=== PATIENT | female | born 1985 | race Caucasian/White ===

== ENCOUNTER 2022-06-30 11:18 | Emergency (ER) | payer MEDICAID ==
[~2022-06-30] VITALS: Ht 157 cm; Wt 48.0 kg
[~2022-06-30 11:18] MED LIST: BUTA1TAB46 PO; CYCL10TA9 PO; MULT-608 PO; NAPR-243 PO; ONDA-42 SL; ORPH100T PO; [UNRECOGNIZED DRUG - CODE] PO
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
[2022-06-30 13:03] VITALS: BP 125/92
== END 2022-06-30 13:03 | disposition home or self-care (01) ==
LOC: EDUNIT# 11:18 → ER 11:22
DX: Z00.00 Encounter for general adult medical examination without abnormal findings (principal); T43.221A Poisoning by selective serotonin reuptake inhibitors, accidental (unintentional), initial encounter; F31.9 Bipolar disorder, unspecified; G89.29 Other chronic pain; R10.31 Right lower quadrant pain; F17.210 Nicotine dependence, cigarettes, uncomplicated; Z79.83 Long term (current) use of bisphosphonates
CPT/HCPCS: 99281

== ENCOUNTER 2022-06-30 20:29 | Emergency (ER) | payer MEDICAID ==
[~2022-06-30] VITALS: Ht 165 cm; Wt 63.0 kg
[2022-06-30 21:33] LABS: CLARITY,URINE CLEAR; COLOR,URINE ORANGE; GLUCOSE, URINE (UA) NEGATIVE (NEGATIVE); KETONES,URINE 3+ (NEGATIVE); LEUKOCYTE ESTERASE ,URINE NEGATIVE (NEGATIVE); NITRITE,URINE NEGATIVE (NEGATIVE); PH,URINE 5.5 (5-9); PROTEIN,URINE 1+ (NEGATIVE)
[2022-06-30 21:43] LABS: BACTERIA,URINE LARGE /HPF; SQUAMOUS EPITHELIAL CELL,UR 25-50 /HPF
[2022-06-30 21:44] LABS: BILIRUBIN,URINE NEGATIVE (NEGATIVE); CALCIUM OXALATE CRYSTALS,UR FEW /LPF
[2022-06-30 21:47] LABS: BASOPHILS % (AUTO) 1 % (0-10); EOSINOPHILS # (AUTO) 0.1 10^3/uL (0.0-0.3); EOSINOPHILS % (AUTO) 2 % (0-10); HEMATOCRIT 43 % (35-52); HEMOGLOBIN 14.2 g/dL (11.5-16.0); LYMPHOCYTES # (AUTO) 1.9 10^3/uL (1.0-4.0); LYMPHOCYTES % (AUTO) 25 % (12-44); MEAN CORPUSCULAR HEMOGLOBIN 28 pg (25-34); MEAN CORPUSCULAR HGB CONC 33 g/dL (32-36); MEAN CORPUSCULAR VOLUME 84 fL (80-99); MEAN PLATELET VOLUME 9.5 fL (9.0-12.2); MONOCYTES # (AUTO) 0.6 10^3/uL (0.0-1.0); MONOCYTES % (AUTO) 8 % (0-12); NEUTROPHILS # (AUTO) 4.8 10^3/uL (1.8-7.8); NEUTROPHILS % (AUTO) 65 % (42-75); PLATELET COUNT 293 10^3/uL (130-400); WHITE BLOOD COUNT 7.5 10^3/uL (4.3-11.0)
[2022-06-30 21:50] LABS: AMPHETAMINE SCREEN, URINE NEGATIVE (NEGATIVE); BARBITURATE SCREEN URINE NEGATIVE (NEGATIVE); BENZODIAZEPINES SCREEN URINE POSITIVE (NEGATIVE); CANNABINOID SCREEN, URINE POSITIVE (NEGATIVE); COCAINE SCREEN URINE NEGATIVE (NEGATIVE); METHADONE STAT NEGATIVE (NEGATIVE); OPIATE SCREEN URINE NEGATIVE (NEGATIVE); OXYCODONE STAT NEGATIVE (NEGATIVE); PROPOXYPHENE STAT NEGATIVE (NEGATIVE); TRICYCLIC ANTIDEPRESSANTS SCRE NEGATIVE (NEGATIVE)
[2022-06-30 21:59] LABS: CHLORIDE 108 MMOL/L (98-107); POTASSIUM 3.2 MMOL/L (3.6-5.0); SODIUM 142 MMOL/L (135-145)
[2022-06-30 22:00] LABS: ALBUMIN 4.9 GM/DL (3.2-4.5)
[2022-06-30 22:01] LABS: CALCIUM 9.9 MG/DL (8.5-10.1)
[2022-06-30 22:02] LABS: GLUCOSE 88 MG/DL (70-105)
[2022-06-30 22:03] LABS: CARBON DIOXIDE 21 MMOL/L (21-32); TOTAL PROTEIN 7.9 GM/DL (6.4-8.2)
[2022-06-30 22:04] LABS: BILIRUBIN,TOTAL 0.7 MG/DL (0.1-1.0)
[2022-06-30 22:06] LABS: ALKALINE PHOSPHATASE 45 U/L (40-136); CREATININE SERUM 0.81 MG/DL (0.60-1.30); GFR ESTIMATED 95
[2022-06-30 22:07] LABS: BUN/CREATININE RATIO 12
[2022-06-30 22:09] LABS: ALANINE AMINOTRANSFERASE 16 U/L (0-55); SALICYLATE < 5.0 MG/DL (5.0-20.0)
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
[2022-06-30] MEDS ORDERED: KCL 10 MEQ TAB (MICRO K) PO ONE (22:15)
[2022-06-30 22:21] LABS: ACETAMINOPHEN < 10 UG/ML (10-30)
[2022-07-01] MEDS ORDERED: LORazepam 0.5 MG (ATIVAN) TABLET PO STA (02:58)
[2022-07-01] MEDS ORDERED: KETOROLAC 30 MG/ML VIAL IVP ONE (03:00)
[2022-07-01] MEDS ORDERED: IBUPROFEN TABLET 200 MG TAB PO ONE (03:00)
[2022-07-01] MEDS ORDERED: LORazepam INJ 2 MG/ML (ATIVAN) VIAL IVP ONE (03:00)
[2022-07-01] MEDS ORDERED: ACETAMINOPHEN 500 MG TAB (TYLENOL) PO ONE (07:30)
[2022-07-01] MEDS ORDERED: LORazepam 1 MG (ATIVAN) TAB PO ONE (10:30)
[2022-07-01 12:30] VITALS: BP 108/87
== END 2022-07-01 12:30 | disposition short-term general hospital (02) ==
LOC: EDUNIT# 20:29 → ER 20:30
DX: R45.851 Suicidal ideations (principal); G47.00 Insomnia, unspecified; R45.1 Restlessness and agitation; F17.210 Nicotine dependence, cigarettes, uncomplicated; Z20.822 Contact with and (suspected) exposure to COVID-19
CPT/HCPCS: 80053; 80306; 81000; 84443; 84703; 85025; 87636; 93005; 93041; 99283; G0480 ×3; 36415; 80320; 80329